=== PATIENT | female | born 1990 | race Two or more races ===

== ENCOUNTER 2019-11-30 11:18 | Outpatient (REF) | payer OTHER, SELFPAY ==
[2019-11-30 11:41] LABS: COVID-19 Test Negative (Negative)
== END 2019-11-30 11:19 | disposition home or self-care (01) ==
LOC: HO.LAB 11:18
PROVIDERS: Visit Provider Internal Medicine
DX: Z20.828 Contact with and (suspected) exposure to other viral communicable diseases (principal)
CPT/HCPCS: 87635

== ENCOUNTER 2019-12-02 19:17 | Outpatient (REF) | payer OTHER, SELFPAY | END 2019-12-02 19:18 | disposition home or self-care (01) | LOC: HO.LAB 19:17 | PROVIDERS: Visit Provider Internal Medicine | DX: Z20.828 Contact with and (suspected) exposure to other viral communicable diseases (principal) | CPT/HCPCS: 87635 ==

== ENCOUNTER 2020-02-25 12:00 | Outpatient (REF) | payer OTHER, SELFPAY ==
[2020-02-25 12:31] LABS: COVID-19 Test Negative (Negative)
== END 2020-02-25 12:01 | disposition home or self-care (01) ==
LOC: HO.EMPCOV 12:00
PROVIDERS: Visit Provider Internal Medicine
DX: Z20.822 Contact with and (suspected) exposure to COVID-19 (principal)
CPT/HCPCS: 36415; 87635; C9803